=== PATIENT | male | born 2000 | race Caucasian/White ===

== ENCOUNTER 2021-04-20 19:38 | Emergency (ER) | payer OTHER ==
[~2021-04-20] VITALS: Ht 152.4 cm; Wt 49.8 kg
[2021-04-20] MEDS ORDERED: HYDR25TA PO (22:33)
--- NOTE | 2021-04-20 22:36 | PHYS DOC ---
Past Medical History Additional Past Medical Histor: BOARDERLINE, ADHD Past Surgical History: Other Additional Past Surgical Histo: DOUBLE MASECTOMY Smoking Status: Current Every Day Smoker Alcohol Use: Occasionally General Adult EDM: Chief Complaint: PSYCH EVALUATION HPI: HPI: 20 yo transgender M past medical history of borderline personality disorder, PTSD, ADHD, dysthymia and generalized anxiety disorder, presents to the ED with complaints of " I am extremely medication dependent and I have emotional episodes of feeling extremely terrified that I feel as if my stool is being ripped from me." States he is not currently experiencing 1 of these episodes but feels as if his medications are no longer working and are turning him into a vegetable. Last saw a psychiatrist more than a few years ago. His pcp Rafaela nye has been managing his psych meds, has genetic testing with him that she ordered. Has been admitted to inpatient psych twice ([facility]) when he was a minor. Pt is also transgender, transitioning to male on hormone therapy-has had a double mastectomy, still with female genitals. Has been told by his primary care physician and his roommate (who works in this ed) that he needs to see a psychiatrist. Reports his only prescribed medication is Adderall. Denies any alcohol or drug use or mood altering substances. Denies any hallucinations, suicidal thoughts or plans, or homicidal ideations. Reports poor oral intake due to worsening anxiety but denies any nausea or vomiting. No h/o dvt or pe. Review of Systems: Review of Systems: Constitutional: Denies fever or chills. [] Eyes: Denies change in visual acuity. [] HENT: Denies nasal congestion or sore throat. [] Respiratory: Denies cough or shortness of breath. [] Cardiovascular: Denies chest pain or edema or hemoptysis GI: Denies nausea or vomiting Musculoskeletal: Denies back pain or joint pain. [] Integument: Denies rash or diaphoresis Neurologic: Denies focal weakness or sensory changes. [] Endocrine: Denies polyuria or polydipsia. [] Lymphatic: Denies swollen glands. [] Psychiatric: Denies homicidal or suicidal ideations Heart Score: C/O Chest Pain: No Risk Factors: Risk Factors: DM, Current or recent (<one month) smoker, HTN, HLP, family history of CAD, obesity. Risk Scores: Score 0 - 3: 2.5% MACE over next 6 weeks - Discharge Home Score 4 - 6: 20.3% MACE over next 6 weeks - Admit for Clinical Observation Score 7 - 10: 72.7% MACE over next 6 weeks - Early Invasive Strategies Allergies: Allergies: Allergies Coded Allergies Type Severity Reaction Last Updated Verified Penicillins Allergy Severe 04/20/21 Yes Sulfa (Sulfonamide Antibiotics) Allergy Severe 04/20/21 Yes Tetracyclines Allergy Severe 04/20/21 Yes doxycycline Allergy Severe 04/20/21 Yes thioridazine Allergy Severe 04/20/21 Yes Physical Exam: PE: Constitutional: Well developed, well nourished, no acute distress, non-toxic appearance. HENT: Normocephalic, atraumatic, slightly dry mucous membranes Eyes: EOMI, conjunctiva normal, no discharge. Neck: Normal range of motion, supple, Cardiovascular: S1/2 present, regular rhythm, mild tachycardia, HR 93 at rest during evaluation Lungs & Thorax: Speaking in full sentences, bilateral equal chest rise, no tachypnea or increased work of breathing Abdomen: soft, no tenderness, Skin: Warm, dry, no erythema, no rash. [] Back: No tenderness, no CVA tenderness. [] Extremities: No tenderness, no cyanosis, no lower extremity edema Neurologic: Alert and oriented X 3, normal motor function, normal sensory function, no focal deficits noted. [] Psychologic: Affect normal, judgement normal, mood normal-no clinical depression or active anxiety Current Patient Data: Vital Signs: Vital Signs Date Time Temp Pulse Resp B/P (MAP) Pulse Ox O2 Delivery O2 Flow Rate FiO2 04/20/21 21:40 98.6 110 20 131/77 (95) 98 Room Air 98.6 EKG: EKG: [] Radiology/Procedures: Radiology/Procedures: [] Course & Med Decision Making: Course & Med Decision Making Pertinent Labs and Imaging studies reviewed. (See chart for details) Encounter for medication adjustment, requesting psychiatry evaluation. Patient was educated that we do not have any psychiatric services in the emergency department. I did offer social work consultation for outpatient counseling resources-pt declined. Patient is not a danger to himself or others and has medical decision-making capacity. Patient is describing intermittent episodes of anxiety exacerbation-will prescribe hydroxyzine and recommend no alcohol or driving with this medication. Adderall could be exacerbating his anxiety. Will discharge home with strict ED return precautions were given for suicidal or homicidal ideations or hallucinations. Encouraged urgent outpatient follow-up with PMD and psychiatry. Life-threatening processes were considered but are low suspicion at this time, given history, physical exam and ED workup. Pt was ed ucated on all prescription medications and adverse effects. All patient's questions were answered and pt was stable at time of discharge. Life/limb-threatening differential includes but is not limited to, end organ damage/sepsis, trauma/abuse/neglect, neurologic deficit, alcohol/drug ingestion, toxidrome, suicidal/homicidal ideations plans or attempts, psychosis or mental illness resulting in self neglect and inability to care for self. I have spoken with the patient and/or caregivers. I explained the patient's condition, diagnoses and treatment plan based on the information available to me at this time. I have answered the patient and/or caregiver's questions and addressed any concerns. The patient and/or caregivers have a good understanding of patient's diagnosis, condition and treatment plan as can be expected at this point. Vital signs have been stable. Patient's condition is stable and appropriate for discharge from the emergency department. Patient will pursue further outpatient evaluation with primary care physician or other designated or consulting physician as outlined in the discharge instructions. The patient and/or caregivers are agreeable to this plan of care and follow-up instructions have been explained in detail. The patient and/or caregivers have received these instructions in written form and have expressed an understanding of the discharge instructions. The patient and/or caregivers are aware that any significant change of condition or worsening of symptoms should prompt immediate return to this or the closest emergency department or call to 911. Vito Disclaimer: Vito Disclaimer: This electronic medical record was generated, in whole or in part, using a voice recognition dictation system. Departure Departure Impression: Primary Impression: Encounter for psychiatric assessment Additional Impression: Anxiety Disposition: 01 HOME / SELF CARE / HOMELESS Condition: STABLE Referrals: RAFAELA PALMER NP (PCP) Follow-up with your primary care physician in 24 to 48 hours OR FOLLOW UP WITH FAMILY MEDICINE: [address] [place] [address] Patient Instructions: Anxiety and Panic Attacks Additional Instructions: FOLLOW UP WITH PSYCHIATRY: FOR DEFINITIVE MANAGEMENT of anxiety/depression Dr. Artur Loya Psychiatry Specialist [address] [place], [place] [address] EMERGENCY DEPARTMENT GENERAL DISCHARGE INSTRUCTIONS Thank you for coming to [facility] Emergency Department (ED) today and trusting us with you care. We trust that you had a positive experience in our Emergency Department. If you wish to speak to the department management, you may call the Director at [phone]. YOUR FOLLOW UP INSTRUCTIONS ARE FOLLOWS: 1. Do you have a private Doctor? If you do not have a private doctor, please ask for a resource list of physicians or clinics that may be able to assist you with follow up care. 2. The Emergency Physicain has interpreted your x-rays. The X-Ray specialist will also review them. If there is a change in the findings, you will be notified in 48 hours when at all possible. 3. A lab test or culture has been done, your results will be reviewed and you will be notified if you need a change in treatment. ADDITIONAL INSTRUCTIONS AND INFORMATION: 1. Your care today has been supervised by a physician who is specially trained in emergency care. Many problems require more than one evaluation for a complete diagnosis and treatment. We recommend that you schedule your follow up appointment as recomm ended to ensure complete treatment of you illness or injury. If you are unable to obtain follow up care and continue to have a problem, or if your condition worsens, we recommend that you return to the ED. 2. We are not able to safely determine your condition over the phone nor are we able to give sound medical advice over the phone. For these safety reasons, if you call for medical advice we will ask you to come to the ED for further evaluation. 3. If you have any questions regarding these discharge instructions please call the ED at [phone]. SAFETY INFORMATION: In the interest of safety, wellness, and injury prevention; we encourage you to wear your sealbelt, if you smoke; quite smoking, and we encourage family to use a protective helmet for bicycling and other sporting events that present an increased risk for head injury. IF YOUR SYMPTOMS WORSEN OR NEW SYMPTOMS DEVELOP, OR YOU HAVE CONCERNS ABOUT YOUR CONDITION; OR IF YOUR CONDITION WORSENS WHILE YOU ARE WAITING FOR YOUR FOLLOW UP APPOINTMENT; EITHER CONTACT YOUR PRIMARY CARE DOCTOR, THE PHYSICIAN WHOSE NAME AND NUMBER YOU WERE GIVEN, OR RETURN TO THE ED IMMEDIATELY. Scripts Hydroxyzine Hcl (HYDROXYZINE HCL) 25 Mg Tablet 1 TAB PO TID PRN for itching, #30 TAB Prov: DEVON MILLAN DO 04/20/21 DEVON MILLAN DO Apr 20, 2021 22:35
[2021-04-20 22:37] VITALS: BP 124/86
== END 2021-04-20 22:42 | disposition home or self-care (01) ==
LOC: ER 19:38
DX: F41.9 Anxiety disorder, unspecified (principal); F90.9 Attention-deficit hyperactivity disorder, unspecified type; F17.200 Nicotine dependence, unspecified, uncomplicated; Z88.0 Allergy status to penicillin; Z88.1 Allergy status to other antibiotic agents; Z88.2 Allergy status to sulfonamides; Z88.8 Allergy status to other drugs, medicaments and biological substances
CPT/HCPCS: 99283

== ENCOUNTER 2021-04-22 21:09 | Emergency (ER) | payer OTHER ==
[~2021-04-22] VITALS: Ht 157.5 cm; Wt 45.0 kg
[~2021-04-22 21:09] MED LIST: HYDR25TA PO
--- NOTE | 2021-04-22 21:59 | PHYS DOC ---
Past Medical History Additional Past Medical Histor: BOARDERLINE, ADHD Past Surgical History: Other Additional Past Surgical Histo: DOUBLE MASECTOMY Smoking Status: Current Every Day Smoker Alcohol Use: Occasionally General Adult HPI: HPI: Patient is a 20 year old male who presents with anxiety and worsening episodes of a panic attack where he feels like he is incapacitated and cannot move and has thoughts of SI and HI and full rage. He states then it goes away and he is fine. He states he does not currently feel suicidal or homicidal. He takes Adderall daily. He states he has been on depression and anxiety medications before but he is sensitive especially to SSRIs and does not like how they make him feel. He states of 12 he was inpatient psych for suicidal ideation. Patient thinks that he is having seizures during these episodes and that is what these episodes are. However he remembers these episodes and there is no shaking during these episodes and he is not postictal after the episodes. He denies any current hallucinations, SI, HI, plan, nausea, vomiting, abdominal pain, chest pain, shortness of air, headache, dizziness, fever, cough, syncope. Has a history of SI, HI, rage, anxiety, depression, borderline personality, double mastectomy. Denies any type of pain at this time. Review of Systems: Review of Systems: Constitutional: Denies fever or chills. [] Eyes: Denies change in visual acuity. [] HENT: Denies nasal congestion or sore throat. [] Respiratory: Denies cough or shortness of breath. [] Cardiovascular: Denies chest pain or edema. [] GI: Denies abdominal pain, nausea, vomiting, bloody stools or diarrhea. [] : Denies dysuria. [] Musculoskeletal: Denies back pain or joint pain. [] Integument: Denies rash. [] Neurologic: Denies headache, focal weakness or sensory changes. [] Endocrine: Denies polyuria or polydipsia. [] Lymphatic: Denies swollen glands. [] Psychiatric: +depression or +anxiety. +Panic attack. +Rage episodes[] Heart Score: C/O Chest Pain: No Allergies: Allergies: Allergies Coded Allergies Type Severity Reaction Last Updated Verified Penicillins Allergy Severe 04/20/21 Yes Sulfa (Sulfonamide Antibiotics) Allergy Severe 04/20/21 Yes Tetracyclines Allergy Severe 04/20/21 Yes doxycycline Allergy Severe 04/20/21 Yes thioridazine Allergy Severe 04/20/21 Yes Physical Exam: PE: Constitutional: Well developed, well nourished, no acute distress, non-toxic appearance. [] HENT: Normocephalic, atraumatic, bilateral external ears normal, oropharynx moist, no oral exudates, nose normal. [] Eyes: PERRLA, EOMI, conjunctiva normal, no discharge. [] Neck: Normal range of motion, no tenderness, supple, no stridor. [] Cardiovascular:Heart rate regular rhythm, no murmur [] Lungs & Thorax: Bilateral breath sounds clear to auscultation [] Abdomen: Bowel sounds normal, soft, no tenderness, no masses, no pulsatile masses. [] Skin: Warm, dry, no erythema, no rash. [] Back: No tenderness, no CVA tenderness. [] Extremities: No tenderness, no cyanosis, no clubbing, ROM intact, no edema. [] Neurologic: Alert and oriented X 3, normal motor function, normal sensory function, no focal deficits noted. [] Psychologic: Affect normal, judgement normal, mood normal. Anxious[] EKG: EKG: [] Radiology/Procedures: Radiology/Procedures: [] Course & Med Decision Making: Course & Med Decision Making Pertinent Labs and Imaging studies reviewed. (See chart for details) See HPI. Alert and oriented x4. Ambulatory steady gait. Speaks in full clear sentences. Calm and appropriate. Answers all questions appropriately. Isaias from [facility] team is in speaking with the patient. She is starting with RSI and hopefully she can get him in to follow-up. Skin pink warm and dry. Vital signs within normal limits. He did come here with his mother and he asked that his mother not come back to the room with him. Patient is refusing blood work. He is refusing Covid test. He states he was to leave AMA. It is explained to him that we would like to help him and are working on it. Patient states "no, I want none of this and want nothing done." He states hes going to follow up as a out patient or with is primary care. I have spoken with Isaias from [facility] team and let her know. Patient is in no harm to himself or others. He is alert and oriented. He continues to deny SI or HI. [] Dragon Disclaimer: Vito Disclaimer: This electronic medical record was generated, in whole or in part, using a voice recognition dictation system. Departure Departure Impression: Primary Impression: Left against medical advice Additional Impression: Anxiety Disposition: LEFT AGAINST MEDICAL ADVICE Condition: STABLE Referrals: NADIYA PALMER WOUND CARE COORDINATOR (PCP) Patient Instructions: Anxiety and Panic Attacks Additional Instructions: Follow-up with your primary care doctor or RSI. Can always return to the emergency room. DENNIS WALTON [employer] [employer] Apr 22, 2021 21:59
[2021-04-22 22:00] VITALS: BP 124/70
== END 2021-04-22 22:42 | disposition left against medical advice (07) ==
LOC: ER 21:09
DX: F41.9 Anxiety disorder, unspecified (principal); F17.200 Nicotine dependence, unspecified, uncomplicated; Z88.0 Allergy status to penicillin; Z88.2 Allergy status to sulfonamides; Z88.1 Allergy status to other antibiotic agents; Z88.8 Allergy status to other drugs, medicaments and biological substances
CPT/HCPCS: 99281